=== PATIENT | female | born 1985 | race Caucasian/White ===

== ENCOUNTER 2017-03-14 21:14 | Emergency (ER) | payer MEDICAID, OTHER ==
[2017-03-14 21:32] VITALS: O2SAT 99
--- NOTE | 2017-03-14 22:24 | C.PDOC ---
History Of Present Illness Pt was BIBEMS due to alcohol intoxication. Time Seen by Provider: 03/14/17 21:33 Chief Complaint (Nursing): Substance Abuse History Per: Patient, EMS History/Exam Limitations: intoxication Onset/Duration Of Symptoms: Other (tonight) Current Symptoms Are (Timing): Still Present Suicide/Self Injury Attempted (Context): None Modifying Factor(s): Alcohol Severity: Moderate Associated Symptoms: denies: Suicidal Thoughts, Suicidal Plan Additional History Per: Prior Records Past Medical History Reviewed: Historical Data, Nursing Documentation, Vital Signs Vital Signs: Last Vital Signs Temp 98.3 F 03/14/17 21:23 Pulse 112 H 03/14/17 21:23 Resp 22 03/14/17 21:23 BP 111/85 03/14/17 21:23 Pulse Ox 99 03/14/17 21:23 - Medical History PMH: Anxiety, Asthma Family History: States: Unknown Family Hx - Social History Hx Alcohol Use: Yes Hx Substance Use: No - Immunization History Hx Tetanus Toxoid Vaccination: No Hx Influenza Vaccination: No Hx Pneumococcal Vaccination: No Review Of Systems Except As Marked, All Systems Reviewed And Found Negative. Constitutional: Negative for: Fever Cardiovascular: Negative for: Chest Pain Respiratory: Negative for: Shortness of Breath Gastrointestinal: Negative for: Vomiting, Abdominal Pain Musculoskeletal: Negative for: Neck Pain Skin: Negative for: Rash Neurological: Negative for: Weakness, Numbness, Seizures, Altered Mental Status Physical Exam - Physical Exam Appears: Non-toxic, No Acute Distress, Other (AOB) Skin: Normal Color, Warm, Dry, No Rash Head: Atraumatic, Normacephalic Eye(s): bilateral: PERRL, EOMI Neck: Normal ROM, No Midline Cervical Tenderness, No Step Off Deformity, Supple Cardiovascular: Rhythm Regular Respiratory: Normal Breath Sounds, No Accessory Muscle Use Gastrointestinal/Abdominal: Soft, No Tenderness Extremity: Normal ROM, No Deformity Neurological/Psych: Oriented x3, Normal Motor, Normal Sensation Gait: Steady ED Course And Treatment O2 Sat by Pulse Oximetry: 99 Pulse Ox Interpretation: Normal Progress Note: Pt is clinically sober. AAOx3. Steady gait. Someone is here to pick her up right now. Reassessment Condition: Improved Disposition Counseled Patient/Family Regarding: Diagnosis, Need For Followup - Disposition Disposition: HOME/ ROUTINE Disposition Time: 22:24 Condition: IMPROVED Additional Instructions: Avoid alcohol. Follow up with your doctor. Return to the ER if you develop worsening of symptoms or if you have any other concerns. Instructions: Alcohol Intoxication (ED) Print Language: KYRGYZ - Clinical Impression Clinical Impression: Alcohol intoxication
[2017-03-14 22:29] VITALS: BP 120/80; PULSE 80; RESP 14; TEMP 97.5
== END 2017-03-14 22:29 | disposition home or self-care (01) ==
LOC: C.ER 21:14
DX: F10.120 Alcohol abuse with intoxication, uncomplicated (principal); Y90.9 Presence of alcohol in blood, level not specified

== ENCOUNTER 2017-03-24 10:23 | Emergency (ER) | payer OTHER ==
[2017-03-24 10:41] VITALS: TEMP 98.6; O2SAT 100
[2017-03-24 12:00] VITALS: RESP 20
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
[2017-03-24 13:12] VITALS: BP 130/86; PULSE 106
--- NOTE | 2017-03-27 06:48 | CARD ---
APPROVED REPORT EKG Measurement Heart [id number] 132P40 [id number] <Conclusion> Sinus tachycardia Otherwise normal ECG
== END 2017-03-24 14:17 | disposition home or self-care (01) ==
LOC: C.ER 10:23
DX: F41.9 Anxiety disorder, unspecified (principal)

== ENCOUNTER 2018-04-18 16:12 | Emergency (ER) | payer OTHER ==
[2018-04-18 16:21] VITALS: BMI 34.7
[2018-04-18 16:24] VITALS: BP 119/82; PULSE 86; RESP 18; TEMP 98.5; O2SAT 98
[2018-04-18] MEDS ORDERED: Tetracaine 0.5% Ophth (OR ONLY) ONE (16:38)
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
== END 2018-04-18 17:49 | disposition home or self-care (01) ==
LOC: C.ER 16:12
DX: H11.31 Conjunctival hemorrhage, right eye (principal); S00.11XA Contusion of right eyelid and periocular area, initial encounter; Y04.0XXA Assault by unarmed brawl or fight, initial encounter; Y92.9 Unspecified place or not applicable

== ENCOUNTER 2018-05-18 20:14 | Emergency (ER) | payer OTHER ==
[2018-05-18 20:14] VITALS: BMI 34.7
[2018-05-18 20:43] VITALS: O2SAT 100
[2018-05-18] MEDS ORDERED: Albuterol-Ipratrop 3 mg / 0.5 (3 ml) UD INH STA ×2 (21:09→22:19)
--- NOTE | 2018-05-18 21:19 | C.PDOC ---
History Of Present Illness 33yo female, history of asthma, anxiety, GERD, comes to ER for evaluation of 4 days of intermittent subjective fevers, chills, dry cough and sore throat. She also reports associated chest tightness. Patient has been taking Tylenol, Mucinex, using her nebulizer treatments at home with no relief of symptoms. She also reports a low back pain, and 4 episodes of non-bloody and yellow diarrhea. Patient denies any known sick contacts, recent travels, lightheadedness, weakness, and offers no other complaints. PMD: Dr. Lyon Time Seen by Provider: 05/18/18 20:35 Chief Complaint (Nursing): Cough, Cold, Congestion History Per: Patient History/Exam Limitations: no limitations Onset/Duration Of Symptoms: Days Current Symptoms Are (Timing): Still Present Past Medical History Reviewed: Historical Data, Nursing Documentation, Vital Signs Vital Signs: Last Vital Signs Temp 100 F H 05/18/18 22:43 Pulse 105 H 05/18/18 22:27 Resp 17 05/18/18 22:27 BP 101/59 L 05/18/18 22:27 Pulse Ox 100 05/18/18 22:45 - Medical History PMH: Anxiety, Asthma, Hypercholesterolemia Surgical History: No Surg Hx Family History: States: Unknown Family Hx - Social History Hx Alcohol Use: Yes Hx Substance Use: No - Immunization History Hx Tetanus Toxoid Vaccination: No Hx Influenza Vaccination: No Hx Pneumococcal Vaccination: No Review Of Systems Except As Marked, All Systems Reviewed And Found Negative. Constitutional: Positive for: Fever, Chills Cardiovascular: Positive for: Chest Pain (tightness) Respiratory: Positive for: Cough, Shortness of Breath. Negative for: Sputum Gastrointestinal: Negative for: Nausea, Vomiting Neurological: Negative for: Weakness Physical Exam - Physical Exam Appears: Non-toxic, No Acute Distress Skin: Warm, Dry Head: Atraumatic, Normacephalic Eye(s): bilateral: Normal Inspection, PERRL, EOMI Ear(s): Left: TM Obscured By Wax, Right: Normal Nose: Normal Oral Mucosa: Moist Neck: Normal ROM, Supple Chest: Symmetrical Cardiovascular: Rhythm Regular Respiratory: Wheezing (expiratory) Gastrointestinal/Abdominal: Normal Exam, Soft Back: Normal Inspection Extremity: Normal ROM, No Pedal Edema Neurological/Psych: Oriented x3 ED Course And Treatment - Laboratory Results Result Diagrams: 05/18/18 21:32 05/18/18 21:32 O2 Sat by Pulse Oximetry: 100 (RA) Pulse Ox Interpretation: Normal Medical Decision Making Medical Decision Making: Assesment: Pneumonia Plan: * Labs * EKG * CXR * Urinalysis * Tylenol 650mg PO * Duoneb 3ml INH * Solumedrol 125mg IVP 2200 CXR reviewed, shows left lower lobe infiltrates. Patient given IV Rocephin and Zithromax PO. 2236 On reassessment, patient reports feeling much better and will follow up with PMD outpatient. Stable for discharge home. Disposition - Disposition Referrals: Roland Lyon MD [Medical Doctor] - Disposition: HOME/ ROUTINE Disposition Time: 22:42 Condition: STABLE Additional Instructions: follow up with your doctor within 2 days call to make an appointment take medications as prescribed return to ER if symptoms worsens or progress Prescriptions: Albuterol 0.083% [Albuterol Sulfate 3 Ml] 3 ml IH Q6 PRN #50 neb PRN Reason: Cough And Congestion Azithromycin [Zithromax] 250 mg PO DAILY #4 tab Naproxen [Naprosyn] 500 mg PO BID PRN #16 tab PRN Reason: Pain, Moderate (4-7) predniSONE [predniSONE Tab] 50 mg PO DAILY #4 tab Instructions: Pneumonia in Adults Forms: General Discharge Instructions, [facility] (Romanian), Work Excuse - Clinical Impression Clinical Impression: Pneumonia - Scribe Statement The provider has reviewed the documentation as recorded by the Jodi Molina Provider Attestation: All medical record entries made by the Jodi were at my direction and personally dictated by me. I have reviewed the chart and agree that the record accurately reflects my personal performance of the history, physical exam, medical decision making, and the department course for this patient. I have also personally directed, reviewed, and agree with the discharge instructions and disposition.
[2018-05-18] MEDS ORDERED: Albuterol-Ipratrop 3 mg / 0.5 (3 ml) UD ONE ×2 (21:38→22:23)
[2018-05-18 21:40] LABS: BASO # 0.1 K/uL (0.0-0.2); BASO % 0.5 % (0.0-2.0); EOS # 0.1 K/uL (0.0-0.7); EOS % 0.8 % (0.0-4.0); HEMOGLOBIN 10.9 g/dL (11.0-16.0); LYMPH # 2.2 K/uL (1.0-4.3); LYMPH % 14.9 % (20.0-40.0); MEAN CELL VOLUME 78.8 fL (81.0-99.0); MEAN CORPUSCULAR HEMOGLOBIN 25.8 pg (27.0-31.0); MEAN CORPUSCULAR HGB CONC 32.8 g/dL (33.0-37.0); MEAN PLATELET VOLUME 8.5 fL (7.2-11.7); MONO # 0.8 K/uL (0.0-0.8); MONO % 5.8 % (0.0-10.0); NEUT # 11.4 K/uL (1.8-7.0); RBC 4.21 Mil/uL (3.80-5.20); WHITE BLOOD COUNT 14.6 K/uL (4.8-10.8)
[2018-05-18 21:49] LABS: SQUAMOUS EPITHIAL 9 /hpf (0-5); URINE BILIRUBIN NEGATIVE (NEGATIVE); URINE BLOOD 1+ (NEGATIVE); URINE CLARITY Clear (Clear); URINE COLOR Yellow (YELLOW); URINE GLUCOSE (UA) NORMAL (Normal); URINE LEUKOCYTE ESTERASE NEG Leu/uL (Negative); URINE PROTEIN NEGATIVE (NEGATIVE); URINE UROBILINOGEN NORMAL mg/dL (0.2-1.0)
[2018-05-18 22:23] LABS: ALB/GLOB RATIO 1.1 (1.0-2.1); ALT/SGPT 27 U/L (9-52); AST/SGOT 21 U/L (14-36); B-TYPE NATRIURETIC PEPTIDE 78.5 pg/mL (0-450); BLOOD UREA NITROGEN 11 mg/dL (7-17); CALCIUM 8.9 mg/dl (8.6-10.4); GFR NON-AFRICAN AMERICAN > 60
[2018-05-18 22:28] VITALS: BP 101/59; PULSE 105; RESP 17
[2018-05-18 22:44] VITALS: TEMP 100
--- NOTE | 2018-05-19 09:27 | RAD ---
Chest x-ray two views History: Shortness of breath. Comparison: None available. Findings: Patchy rounded consolidation seen within the left mid lung zone which may represent underlying infiltrate. Posttreatment interval followup would be helpful to ensure resolution and exclude underlying lesion. Clinical correlation. Heart size within normal limits. Degenerative changes in the spine. Impression: Patchy rounded consolidation seen within the left mid lung zone which may represent underlying infiltrate. Posttreatment interval followup would be helpful to ensure resolution and exclude underlying lesion. Clinical correlation.
--- NOTE | 2018-05-20 18:03 | CARD ---
APPROVED REPORT Date of service: 05/18/2018 EKG Measurement Heart [id number] [place] 130P43 [id number] <Conclusion> Sinus tachycardia Otherwise normal ECG
== END 2018-05-18 23:52 | disposition home or self-care (01) ==
LOC: C.ER 20:14
DX: J18.9 Pneumonia, unspecified organism (principal)
CPT/HCPCS: 71046; 80053; 81001; 83880; 84484; 85025; 93005; 94150; 96365; 96375; 99285; J0696; J1885; J2930

== ENCOUNTER 2018-11-03 02:18 | Emergency (ER) | payer OTHER ==
[2018-11-03 02:19] VITALS: BMI 34.7
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
[2018-11-03 05:46] VITALS: BP 104/67; PULSE 90; RESP 16; TEMP 98.2; O2SAT 100
--- NOTE | 2018-11-03 08:17 | RAD ---
PROCEDURE: Left Hand Radiographs.z HISTORY: injury COMPARISON: None. FINDINGS: BONES: No acute fracture noted. Slight changes in the normal tubulation contour of the distal 2nd metacarpal compatible with a prior old healed fracture. No current fracture lines noted. JOINTS: No significant appearing arthrosis. SOFT TISSUES: Swollen soft tissues especially over metacarpals dorsal aspect. OTHER FINDINGS: None. IMPRESSION: No acute fracture noted. Other findings as above.
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
== END 2018-11-03 06:00 | disposition home or self-care (01) ==
LOC: C.ER 02:18
DX: S60.222A Contusion of left hand, initial encounter (principal); S00.03XA Contusion of scalp, initial encounter; Y04.0XXA Assault by unarmed brawl or fight, initial encounter